=== PATIENT | male | born 1970 | race Caucasian/White ===

== ENCOUNTER → 2017-12-16 | Outpatient (CLI) | payer OTHER ==
[~2017-12-16] VITALS: Ht 182.9 cm; Wt 145.1 kg
[~2017-12-16] MED LIST: NORVASC5 MG PO; XARELTO20 MG PO
== END | disposition home or self-care (01) ==
LOC: PPHC 17:39
DX: I82.492 Acute embolism and thrombosis of other specified deep vein of left lower extremity (principal); I10 Essential (primary) hypertension